=== PATIENT | female | born 1960 | race Caucasian/White ===

== ENCOUNTER 2019-02-21 15:34 | Emergency (ER) | payer OTHER ==
[~2019-02-21] VITALS: Ht 165.1 cm; Wt 92.1 kg
--- OUTSIDE RECORDS SUMMARY | 2019-02-21 15:36 | XMS REPORT ---
Author Author [facility] Address Unknown Phone Unavailable Care Team Providers Care Oncology Social Worker Name Role Phone Unavailable Unavailable Problems This patient has no known problems. Allergies, Adverse Reactions, Alerts This patient has no known allergies or adverse reactions. Medications This patient has no known medications.
[2019-02-21] MEDS ORDERED: LISINOPRIL2.5 MG PO (15:46)
[2019-02-21] MEDS ORDERED: LIDOCAINE 1% W/EPINEPHRINE 20 ML VIAL INJ STA (15:48)
[2019-02-21 17:07] VITALS: BP 133/81
== END 2019-02-21 16:40 | disposition home or self-care (01) ==
LOC: FSED 15:34
DX: L02.416 Cutaneous abscess of left lower limb (principal); L03.116 Cellulitis of left lower limb
CPT/HCPCS: 10060; 10061; 82948; 87071; 87186; 87205; 99283